=== PATIENT | male | born 1985 | race Caucasian/White ===

== ENCOUNTER 2020-11-18 16:02 | Emergency (ER) | payer OTHER ==
[~2020-11-18] VITALS: Ht 185.4 cm; Wt 76.0 kg
[2020-11-18] MEDS ORDERED: IV RINGERS SOLUTION,LACTATED 1,000 ML IV STA (18:12)
[2020-11-18] MEDS ORDERED: ONDANSETRON PF 4 MG/2 ML VIAL. IVP ONE (18:15)
[2020-11-18 18:32] LABS: BASO % 1 % (0-3); EOS % 1 % (0-3); HEMATOCRIT 38.4 % (39.0-53.0); HEMOGLOBIN 13.2 g/dL (13.0-17.5); LYMPH # 1.2 x10^3/uL (1.0-4.8); LYMPH % 18 % (24-48); MEAN CORPUSCULAR HEMOGLOBIN 31 pg (25-35); MEAN CORPUSCULAR HGB CONC 34 g/dL (31-37); MEAN CORPUSCULAR VOLUME 89 fL (79-100); MONO # 0.7 x10^3/uL (0.0-1.1); MONO % 10 % (0-9); NEUT # 4.8 x10^3uL (1.8-7.7); NEUT % 71 % (31-73); PLATELET COUNT 248 x10^3/uL (140-400); RED CELL DISTRIBUTION WIDTH 12.6 % (11.5-14.5); WHITE BLOOD COUNT 6.7 x10^3/uL (4.0-11.0)
[2020-11-18 18:48] LABS: CALCIUM 8.4 mg/dL (8.5-10.1); CREATININE 1.1 mg/dL (0.7-1.3); GFR 75.7; POTASSIUM 3.9 mmol/L (3.5-5.1)
--- NOTE | 2020-11-18 19:42 | PHYS DOC ---
Past History Past Medical History: No Pertinent History (DAVID FLORES APRN) Past Surgical History: Other Additional Past Surgical Histo: HERNIA REPAIR (DAVID FLORES APRN) Alcohol Use: None (DAVID FLORES APRN) Adult General Chief Complaint Chief Complaint: NAUSEA/VOMITING/DIARRHEA HPI HPI Patient is a 35-year-old male who presents to the emergency department with a chief complaint that he is homeless and he feels dehydrated. Patient states he has not been drinking as much water as he should. Patient states that he just needs some IV saline and something for nausea and he will feel better and will want to go home. Patient denies chest pain, vomiting diarrhea or constipation, denies abdominal pains. Patient denies any other physical concerns or physical complaints. (DAVID FLORES APRN) Review of Systems Review of Systems 14 body systems of review of systems have been reviewed. See HPI for pertinent positives and negative responses, otherwise all other systems are negative, nonpertinent or noncontributory. (DAVID FLORES APRN) Current Medications Current Medications Current Medications Medications (Trade) Dose Ordered Sig/Volodymyr Start Time Stop Time Status Last Admin Dose Admin Lactated Ringer's 1,000 ml @ 0 mls/hr 1X STAT 11/18/20 18:12 11/18/20 18:16 DC 11/18/20 18:24 1,000 MLS/HR Ondansetron HCl (Zofran) 4 mg 1X ONCE 11/18/20 18:15 11/18/20 18:16 DC 11/18/20 18:24 4 MG (DAVID FLORES APRN) Allergies Allergies Allergies Coded Allergies Type Severity Reaction Last Updated Verified oxycodone Allergy Unknown 11/18/20 Yes (DAVID FLORES APRN) Physical Exam Physical Exam Constitutional: Well developed, well nourished, no acute distress, non-toxic appearance. 35-year-old male in no apparent distress. HENT: Normocephalic, atraumatic, bilateral external ears normal, oropharynx moist, no oral exudates, nose normal. Eyes: PERRLA, EOMI, conjunctiva normal, no discharge. Neck: Normal range of motion, no tenderness, supple, no stridor. Cardiovascular:Heart rate regular rhythm, no murmur, heart sounds S1-S2, the patient is not tachycardic. Lungs & Thorax: Bilateral breath sounds clear to auscultation no adventitious lung sounds appreciated. Abdomen: Bowel sounds normal, soft, no tenderness, no masses, no pulsatile mass es. Skin: Warm, dry, no erythema, no rash. Back: No tenderness, no CVA tenderness. Extremities: No tenderness, no cyanosis, no clubbing, ROM intact, no edema. Neurologic: Alert and oriented X 3, normal motor function, normal sensory function, no focal deficits noted. Psychologic: Affect normal, judgement normal, mood normal. (DAVID FLORES APRN) Current Patient Data Vital Signs Vital Signs Date Time Temp Pulse Resp B/P (MAP) Pulse Ox O2 Delivery O2 Flow Rate FiO2 11/18/20 16:49 98.2 92 16 113/69 (84) 97 Room Air Lab Results Laboratory Tests Test 11/18/20 18:18 White Blood Count 6.7 x10^3/uL (4.0-11.0) Red Blood Count 4.30 x10^6/uL (4.30-5.70) Hemoglobin 13.2 g/dL (13.0-17.5) Hematocrit 38.4 % (39.0-53.0) L Mean Corpuscular Volume 89 fL (79-100) Mean Corpuscular Hemoglobin 31 pg (25-35) Mean Corpuscular Hemoglobin Concent 34 g/dL (31-37) Red Cell Distribution Width 12.6 % (11.5-14.5) Platelet Count 248 x10^3/uL (140-400) Neutrophils (%) (Auto) 71 % (31-73) Lymphocytes (%) (Auto) 18 % (24-48) L Monocytes (%) (Auto) 10 % (0-9) H Eosinophils (%) (Auto) 1 % (0-3) Basophils (%) (Auto) 1 % (0-3) Neutrophils # (Auto) 4.8 x10^3uL (1.8-7.7) Lymphocytes # (Auto) 1.2 x10^3/uL (1.0-4.8) Monocytes # (Auto) 0.7 x10^3/uL (0.0-1.1) Eosinophils # (Auto) 0.0 x10^3/uL (0.0-0.7) Basophils # (Auto) 0.0 x10^3/uL (0.0-0.2) Sodium Level 144 mmol/L (136-145) Potassium Level 3.9 mmol/L (3.5-5.1) Chloride Level 107 mmol/L (98-107) Carbon Dioxide Level 27 mmol/L (21-32) Anion Gap 10 (6-14) Blood Urea Nitrogen 32 mg/dL (8-26) H Creatinine 1.1 mg/dL (0.7-1.3) Estimated GFR (Cockcroft-Gault) 75.7 Glucose Level 159 mg/dL (70-99) H Calcium Level 8.4 mg/dL (8.5-10.1) L Creatine Kinase 433 U/L (39-308) H Creatine Kinase MB (Mass) 6.0 ng/mL (0.0-3.6) H Creatine Kinase MB Relative Index 1.4 % (0-4) (DAVID FLORES APRN) EKG EKG [] (DAVID FLORES APRN) Radiology/Procedures Radiology/Procedures [] (DAVID FLORES APRN) Heart Score C/O Chest Pain: No Risk Factors: Risk Factors: DM, Current or recent (<one month) smoker, HTN, HLP, family history of CAD, obesity. Risk Scores: Risk Factors: DM, Current or recent (<one month) smoker, HTN, HLP, family history of CAD, obesity. (DAVID FLORES APRN) Course & Med Decision Making Course & Med Decision Making Pertinent Labs and Imaging studies reviewed. (See chart for details) 35-year-old male, vital signs reviewed, presents emergency department chief complaint of feeling dehydrated, states he is homeless. Physical examination concerning for mild dehydration, will order IV saline lock, normal saline, 4 mg Zofran, CBC, BMP, creatinine kinase evaluation. Patient's labs unremarkable, creatinine kinase was slightly elevated at 438, however not concerning for rhabdo or severe dehydration. The patient did urinate, however stated on his way out of the bathroom he dropped the urine cup. patient was given 1 L normal saline and 4 mg of Zofran, upon reevaluation of the patient, the patient states he feels a lot better and is ready to go home. Patient gave verbal understanding of discharge home instructions, follow-up with PCP for ongoing problems, return to ER precautions and concerns, patient was discharged home without incident. (DAVID FLORES APRN) Course & Med Decision Making Did not see or evaluate patient. Agree with KEY SANDER's work-up and disposition per note. (POLI BATES MD) Dragon Disclaimer Dragon Disclaimer This electronic medical record was generated, in whole or in part, using a voice recognition dictation system. (DAVID FLORES APRN) Departure Departure: Impression: Primary Impression: Dehydration Disposition: HOME / SELF CARE / HOMELESS Condition: GOOD Referrals: PCP,NO (PCP) Patient Instructions: Dehydration, Adult Additional Instructions: You were seen today in the emergency department for dehydration, your lab work showed mild dehydration, you are given 1 L of normal saline and 4 mg of Zofran, after the infusion you stated that you feel much better. Please into increase your fluid intake while you are outside. Follow-up with your primary care physician for ongoing problems, please return to the emergency department for worsening symptoms or other concerns. EMERGENCY DEPARTMENT GENERAL DISCHARGE INSTRUCTIONS Thank you for coming to [facility] ([facility]) today and trusting us with you care. We trust that you had a positivie experience in our Emergency Department. If you wish to speak to the department management, you may call the director at [phone]. YOUR FOLLOW UP INSTRUCTIONS ARE FOLLOWS: 1. Do you have a private Doctor? If you do not have a private doctor, please ask for a resource list of physicians or clinics that may be able to assist you with follow up care. 2. The Emergency Physician has interpreted your x-rays. The X-Ray specialist w ill also review them. If there is a change in the findings, you will be notified in 48 hours when at all possible. 3. A lab test or culture has been done, your results will be reviewed and you will be notified if you need a change in treatment. ADDITIONAL INSTRUCTIONS AND INFORMATION: 1. Your care today has been supervised by a physician who is specially trained in emergency care. Many problems require more than one evaluation for a complete diagnosis and treatment. We recommend that you schedule your follow up appointment as recommended to ensure complete treatment of you illness or injury. If you are unable to obtain follow up care and continue to have a problem, or if your condition worsens, we recommend that you return to the ED. 2. We are not able to safely determine your condition over the phone nor are we able to give sound medical advice over the phone. For these safety reasons, if you call for medical advice we will ask you to come to the ED for further evaluation. 3. If you have any questions regarding these discharge instructions please call the ED at [phone]. SAFETY INFORMATION: In the interest of safety, wellness, and injury prevention; we encourage you to wear your sealbelt, if you smoke; quite smoking, and we encourage family to use a protective helmet for bicycling and other sporting events that present an increased risk for head injury. IF YOUR SYMPTOMS WORSEN OR NEW SYMPTOMS DEVELOP, OR YOU HAVE CONCERNS ABOUT YOUR CONDITION; OR IF YOUR CONDITION WORSENS WHILE YOU ARE WAITING FOR YOUR FOLLOW UP APPOINTMENT; EITHER CONTACT YOUR PRIMARY CARE DOCTOR, THE PHYSICIAN WHOSE NAME AND NUMBER YOU WERE GIVEN, OR RETURN TO THE ED IMMEDIATELY. DAVID FLORES APRN Nov 18, 2020 19:42 POLI BATES MD Nov 18, 2020 23:53
[2020-11-18 19:45] VITALS: BP 116/66
== END 2020-11-18 20:01 | disposition home or self-care (01) ==
LOC: ER 16:02
DX: E86.0 Dehydration (principal); Z88.5 Allergy status to narcotic agent
CPT/HCPCS: 36415; 80048; 82553; 85025; 96361; 96374; 99283; J2405; J7120

== ENCOUNTER 2020-11-19 09:54 | Emergency (ER) | payer SELFPAY ==
[~2020-11-19] VITALS: Ht 185.4 cm; Wt 76.0 kg
[2020-11-19] MEDS ORDERED: IV NORMAL SALINE 1,000ML 1,000 ML IV ONE (10:00)
[2020-11-19 10:29] LABS: BASO % 1 % (0-3); EOS # 0.2 x10^3/uL (0.0-0.7); EOS % 3 % (0-3); LYMPH # 1.9 x10^3/uL (1.0-4.8); LYMPH % 31 % (24-48); MEAN CORPUSCULAR HEMOGLOBIN 31 pg (25-35); MEAN CORPUSCULAR HGB CONC 34 g/dL (31-37); MEAN CORPUSCULAR VOLUME 90 fL (79-100); MONO # 0.6 x10^3/uL (0.0-1.1); MONO % 10 % (0-9); NEUT # 3.5 x10^3uL (1.8-7.7); NEUT % 56 % (31-73); PLATELET COUNT 251 x10^3/uL (140-400); RED BLOOD COUNT 4.25 x10^6/uL (4.30-5.70); WHITE BLOOD COUNT 6.2 x10^3/uL (4.0-11.0)
[2020-11-19 10:40] LABS: CREATININE 1.1 mg/dL (0.7-1.3); GFR 75.7; POTASSIUM 3.6 mmol/L (3.5-5.1)
--- NOTE | 2020-11-19 11:38 | PHYS DOC ---
Past History Past Medical History: Anxiety, Bipolar, Depression Past Surgical History: Other Additional Past Surgical Histo: HERNIA REPAIR, SURGERY ON FINGER Alcohol Use: Occasionally Adult General Chief Complaint Chief Complaint: SUBSTANCE ABUSE HPI HPI Patient is a 35-year-old male with past medical history of substance abuse who presents to the emergency room complaining of heat exhaustion. Patient states he was outside for only a few minutes when he felt hot and like he was going to pass out. He was seen here yesterday for dehydration. He states he did use methamphetamines yesterday. He has not had much to eat or drink since that time. He denies any pain, nausea, vomiting, diarrhea, chest pain, shortness of breath. History is limited as patient does not answer all questions. Review of Systems Review of Systems Complete ROS is negative unless otherwise documented in HPI Current Medications Current Medications Current Medications Medications (Trade) Dose Ordered Sig/Volodymyr Start Time Stop Time Status Last Admin Dose Admin Sodium Chloride 1,000 ml @ 1,000 mls/hr 1X ONCE 11/19/20 10:00 11/19/20 10:59 DC 11/19/20 10:16 1,000 MLS/HR Allergies Allergies Allergies Coded Allergies Type Severity Reaction Last Updated Verified oxycodone Allergy Unknown 11/18/20 Yes Physical Exam Physical Exam General: Lethargic, NAD. Well Nourished, well hydrated. Cooperative HEENT: Atraumatic, EOMI, PERRL, airway patent, dry oral mucosa Neck: Supple, trachea midline Respiratory: CTA bilaterally, normal effort, no wheezing/crackles CV: RRR, no murmur, cap refill <2 GI: Soft, nondistended, nontender, no masses MSK: No obvious deformities Skin: Warm, dry, intact Neuro: A&O x3, speech NL, sensory and motor grossly intact, no focal deficits Psych: Normal affect, normal mood, not suicidal or homicidal Current Patient Data Vital Signs Vital Signs Date Time Temp Pulse Resp B/P (MAP) Pulse Ox O2 Delivery O2 Flow Rate FiO2 11/19/20 10:03 97.6 80 18 121/82 (95) 96 Room Air Lab Results Laboratory Tests Test 11/19/20 10:14 White Blood Count 6.2 x10^3/uL (4.0-11.0) Red Blood Count 4.25 x10^6/uL (4.30-5.70) L Hemoglobin 13.0 g/dL (13.0-17.5) Hematocrit 38.0 % (39.0-53.0) L Mean Corpuscular Volume 90 fL (79-100) Mean Corpuscular Hemoglobin 31 pg (25-35) Mean Corpuscular Hemoglobin Concent 34 g/dL (31-37) Red Cell Distribution Width 13.0 % (11.5-14.5) Platelet Count 251 x10^3/uL (140-400) Neutrophils (%) (Auto) 56 % (31-73) Lymphocytes (%) (Auto) 31 % (24-48) Monocytes (%) (Auto) 10 % (0-9) H Eosinophils (%) (Auto) 3 % (0-3) Basophils (%) (Auto) 1 % (0-3) Neutrophils # (Auto) 3.5 x10^3uL (1.8-7.7) Lymphocytes # (Auto) 1.9 x10^3/uL (1.0-4.8) Monocytes # (Auto) 0.6 x10^3/uL (0.0-1.1) Eosinophils # (Auto) 0.2 x10^3/uL (0.0-0.7) Basophils # (Auto) 0.0 x10^3/uL (0.0-0.2) Sodium Level 148 mmol/L (136-145) H Potassium Level 3.6 mmol/L (3.5-5.1) Chloride Level 111 mmol/L (98-107) H Carbon Dioxide Level 27 mmol/L (21-32) Anion Gap 10 (6-14) Blood Urea Nitrogen 27 mg/dL (8-26) H Creatinine 1.1 mg/dL (0.7-1.3) Estimated GFR (Cockcroft-Gault) 75.7 Glucose Level 97 mg/dL (70-99) Calcium Level 8.0 mg/dL (8.5-10.1) L Creatine Kinase 344 U/L (39-308) H EKG EKG [] Radiology/Procedures Radiology/Procedures [] Heart Score C/O Chest Pain: N/A Risk Factors: Risk Factors: DM, Current or recent (<one month) smoker, HTN, HLP, family history of CAD, obesity. Risk Scores: Risk Factors: DM, Current or recent (<one month) smoker, HTN, HLP, family history of CAD, obesity. Course & Med Decision Making Course & Med Decision Making Pertinent Labs and Imaging studies reviewed. (See chart for details) Patient is a 35-year-old male with past medical history of methamphetamine abuse who presents to the emergency room complaining of heat exhaustion. Patient's vitals are overall normal. He will be given fluids and lab work will be done. CK will be rechecked as he had a mildly elevated CK yesterday. Lab work unremarkable. Patient stable here in the emergency room. Vitals are normal. Patient's test results and vitals while in the ED were fully reviewed and discussed with the patient. Patient is stable and at this time does not need admission to the hospital. We have discussed strict return precautions and the importance of following up with their Primary Care Physician. Patient stated understanding and was given an opportunity to ask any questions. Patient is in agreement with plan. Dragon Disclaimer Dragon Disclaimer This electronic medical record was generated, in whole or in part, using a voice recognition dictation system. Departure Departure: Impression: Primary Impression: Dehydration Disposition: HOME / SELF CARE / HOMELESS Condition: STABLE Referrals: PCP,NO (PCP) Patient Instructions: Dehydration, Adult, Methamphetamine Abuse, Complications EMERY WINTER MD Nov 19, 2020 11:38
[2020-11-19 13:08] LABS: BILIRUBIN,URINE NEG (NEG); CLARITY,URINE CLEAR; COLOR,URINE YELLOW; GLUCOSE,URINE NEG (NEG)
[2020-11-19 13:09] LABS: NITRITE,URINE NEG (NEG); UROBILINOGEN,URINE 0.2 mg/dL (0.2 mg/dL)
[2020-11-19 13:13] LABS: BACTERIA,URINE 0 /HPF (0-FEW)
[2020-11-19 13:14] LABS: RBC,URINE RARE /HPF (0-2); WBC,URINE RARE /HPF (0-4)
[2020-11-19 13:28] VITALS: BP 113/72
== END 2020-11-19 14:00 | disposition home or self-care (01) ==
LOC: ER 09:54
DX: E86.0 Dehydration (principal); F41.9 Anxiety disorder, unspecified; F31.9 Bipolar disorder, unspecified; Z88.5 Allergy status to narcotic agent
CPT/HCPCS: 36415; 80048; 81001; 82550; 85025; 96360; 99283; J7030

== ENCOUNTER 2021-03-26 17:52 | Emergency (ER) | payer SELFPAY | END 2021-03-26 18:28 | disposition left against medical advice (07) | LOC: ER 17:52 | DX: M79.673 Pain in unspecified foot (principal); Z53.21 Procedure and treatment not carried out due to patient leaving prior to being seen by health care provider ==